=== PATIENT | female | born 1970 | race Asian ===

== ENCOUNTER → 2018-06-02 12:51 | Outpatient (CLI) | payer OTHER, SELFPAY ==
--- NOTE | 2018-06-02 12:58 | DI.RAD.S_ITS ---
PROCEDURE: XR ANKLE LT MIN 3V INDICATIONS: Ankle pain and swelling TECHNIQUE: 4 views of the ankle were acquired. COMPARISON: None. FINDINGS: Bones: No fractures or dislocations. Ankle mortise is normally aligned. No suspicious bony lesions. Soft tissues: No tibiotalar joint effusion. Achilles tendon appears normal. IMPRESSION: No fracture. Dictated by: Jese Strickland M.D. on 06/02/2018 at 13:23 Approved by: Jese Strickland M.D. on 06/02/2018 at 13:25
== END ==
PROVIDERS: Family Provider Family Medicine; PCP Family Medicine; Visit Provider Physician Assistant
DX: M25.572 Pain in left ankle and joints of left foot (principal); M25.472 Effusion, left ankle
CPT/HCPCS: 73610

== ENCOUNTER → 2018-08-17 08:45 | Outpatient (CLI) | payer OTHER, SELFPAY ==
[2018-08-17 09:09] LABS: Hemoglobin 14.6 g/dL (12.0-16.0); Mean Corpuscular HGB Conc 32.4 % (30-36); Mean Corpuscular Hemoglobin 27.3 PG (26-34); Mean Corpuscular Volume 84.1 fL (80-100); Platelet Count 283 X10^3/uL (150-400); Red Blood Cell Count 5.34 X10^6/uL (4.0-5.2); Red Cell Distribution Width 13.3 % (11.6-14.8); White Blood Cell Count 4.6 X10^3/uL (4.5-11.0)
[2018-08-17 09:36] LABS: Alanine Aminotransferase 30 IU/L (9-52); Albumin 4.5 g/dL (3.5-5.0); Albumin Globulin Ratio 1.6 (1.0-2.8); Alkaline Phosphatase 56 U/L (38-126); Aspartate Aminotransferase 26 IU/L (14-36); BUN Creatinine Ratio 26.7 (6-22); Bilirubin Total 0.3 mg/dL (0.2-1.3); Blood Urea Nitrogen 16 mg/dL (7-17); Calcium 9.2 mg/dL (8.4-10.2); Carbon Dioxide 27 mmol/L (22-32); Chloride 103 mmol/L (98-107); Cholesterol 210 mg/dL (140-199); Estimated Glomerular Filt Rate > 60.0 mL/min (>60); Globulin 2.9 g/dL (1.7-4.1); Glucose 97 mg/dL (70-100); HDL Cholesterol 39 mg/dL (40-60); HEMOLYSIS < 15 (0-50); LDL Cholesterol Calculated 138 mg/dL (<100); Potassium 4.5 mmol/L (3.4-5.1); Sodium 139 mmol/L (137-145); Total Protein 7.4 g/dL (6.3-8.2); Triglycerides 164 mg/dL (35-150)
[2018-08-17 10:31] LABS: Appearance Urine UA CLEAR; Bilirubin Urine UA NEGATIVE (NEGATIVE); Color Urine UA YELLOW; Glucose Urine UA NEGATIVE (Negative); Ketones Urine UA NEGATIVE (NEGATIVE); Leukocyte Esterase Urine UA TRACE (NEGATIVE); Nitrite Urine UA NEGATIVE (Negative); Occult Blood Urine UA TRACE-INTACT (Negative); Protein Urine UA NEGATIVE (Negative); Urobilinogen Urine UA 0.2 E.U./dL (0.2); pH Urine UA 6.5 (4.5-8.0)
[2018-08-17 10:47] LABS: Thyroid Stimulating Hormone 1.52 uIU/mL (0.47-4.68)
[2018-08-17 11:00] LABS: Bacteria Urine Few (2-10); RBC Urine 1-5/HPF (0-5/HPF); Squamous Epithelial Cell Urine 1-5 /HPF; WBC Urine 0-1/HPF (0-5/HPF)
[2018-08-17 11:01] LABS: Culture Indicated Urine Specimen Cultured
== END ==
PROVIDERS: Family Provider Family Medicine; PCP Family Medicine; Visit Provider Family Medicine
DX: Z00.00 Encounter for general adult medical examination without abnormal findings (principal); Z51.81 Encounter for therapeutic drug level monitoring; E78.5 Hyperlipidemia, unspecified
CPT/HCPCS: 36415; 80053; 80061; 81001; 84443; 85027; 87077; 87086; 87186

== ENCOUNTER → 2018-09-21 13:23 | Outpatient (CLI) | payer OTHER, SELFPAY ==
--- NOTE | 2018-09-21 | DI.MG.S_ITS ---
BILATERAL DIGITAL SCREENING MAMMOGRAM 3D/2D WITH CAD: 09/21/2018 CLINICAL: Routine screening. Comparison is made to exams dated: 08/07/2015 mammogram - [facility], 03/15/2014 mammogram, and 09/01/2010 mammogram - [facility]. The tissue of both breasts is extremely dense, which lowers the sensitivity of mammography. Current study was also evaluated with a Computer Aided Detection (CAD) system. No significant masses, calcifications, or other findings are seen in either breast. There has been no significant interval change. IMPRESSION: NEGATIVE There is no mammographic evidence of malignancy. A 1 year screening mammogram is recommended. This exam was interpreted at Station ID: [id number]. NOTE: For mammograms, a report in lay terms will be sent to the patient. Approximately 15% of breast malignancies will not be visualized mammographically. In the management of a palpable breast mass, a negative mammogram must not discourage biopsy of a clinically suspicious lesion. Electronically Signed By: Gabby field/briana:09/21/2018 14:32:49 letter sent: Normal Exam ACR BI-RADS Category 1: Negative 3341F
== END ==
PROVIDERS: PCP Family Medicine; Visit Provider Family Medicine
DX: Z12.31 Encounter for screening mammogram for malignant neoplasm of breast (principal)
CPT/HCPCS: 77063; 77067

== ENCOUNTER → 2019-03-27 09:14 | Outpatient (CLI) | payer OTHER, SELFPAY ==
[2019-03-27 10:22] LABS: Alanine Aminotransferase 16 IU/L (9-52); Albumin 4.3 g/dL (3.5-5.0); Albumin Globulin Ratio 1.5 (1.0-2.8); Alkaline Phosphatase 52 U/L (38-126); Aspartate Aminotransferase 26 IU/L (14-36); Bilirubin Total 0.5 mg/dL (0.2-1.3); Blood Urea Nitrogen 15 mg/dL (7-17); Calcium 9.4 mg/dL (8.4-10.2); Carbon Dioxide 28 mmol/L (22-32); Chloride 102 mmol/L (98-107); Cholesterol 222 mg/dL (140-199); Estimated Glomerular Filt Rate > 60.0 mL/min (>60); Globulin 2.9 g/dL (1.7-4.1); Glucose 92 mg/dL (70-100); HDL Cholesterol 39 mg/dL (40-60); HEMOLYSIS < 15 (0-50); LDL Cholesterol Calculated 154 mg/dL (<100); Potassium 3.9 mmol/L (3.4-5.1); Sodium 138 mmol/L (137-145); Total Protein 7.2 g/dL (6.3-8.2); Triglycerides 143 mg/dL (35-150)
[2019-03-27 10:41] LABS: Appearance Urine UA CLEAR; Bilirubin Urine UA NEGATIVE (NEGATIVE); Color Urine UA YELLOW; Glucose Urine UA NEGATIVE (Negative); Ketones Urine UA NEGATIVE (NEGATIVE); Leukocyte Esterase Urine UA NEGATIVE (NEGATIVE); Nitrite Urine UA NEGATIVE (Negative); Occult Blood Urine UA NEGATIVE (Negative); Protein Urine UA NEGATIVE (Negative); Specific Gravity Urine UA <=1.005 (1.000-1.035); Urobilinogen Urine UA 0.2 E.U./dL (0.2)
== END ==
PROVIDERS: PCP Family Medicine; Visit Provider Family Medicine
DX: E78.5 Hyperlipidemia, unspecified (principal); M17.10 Unilateral primary osteoarthritis, unspecified knee; M19.90 Unspecified osteoarthritis, unspecified site; R30.0 Dysuria; R35.0 Frequency of micturition
CPT/HCPCS: 36415; 80053; 80061; 81003

== ENCOUNTER → 2019-08-08 09:48 | Outpatient (CLI) | payer OTHER, SELFPAY ==
[2019-08-08 11:26] LABS: Alanine Aminotransferase 15 IU/L (<35); Albumin 4.4 g/dL (3.5-5.0); Albumin Globulin Ratio 1.7 (1.0-2.8); Alkaline Phosphatase 55 U/L (38-126); Aspartate Aminotransferase 23 IU/L (14-36); BUN Creatinine Ratio 25.7 (6-22); Bilirubin Total 0.4 mg/dL (0.2-1.3); Blood Urea Nitrogen 18 mg/dL (7-17); Calcium 9.6 mg/dL (8.4-10.2); Carbon Dioxide 26 mmol/L (22-32); Chloride 104 mmol/L (98-107); Cholesterol 173 mg/dL (140-199); Estimated Glomerular Filt Rate > 60.0 mL/min (>60); Globulin 2.6 g/dL (1.7-4.1); Glucose 95 mg/dL (70-100); HDL Cholesterol 44 mg/dL (40-60); HEMOLYSIS < 15 (0-50); LDL Cholesterol Calculated 114 mg/dL (<100); Potassium 4.3 mmol/L (3.4-5.1); Sodium 139 mmol/L (137-145); Triglycerides 73 mg/dL (35-150)
== END ==
PROVIDERS: PCP Student in an Organized Health Care Education/Training Program; Referring Provider Family Medicine; Visit Provider Family Medicine
DX: E78.5 Hyperlipidemia, unspecified (principal)
CPT/HCPCS: 36415; 80053; 80061

== ENCOUNTER → 2020-03-25 08:32 | Outpatient (CLI) | payer OTHER, SELFPAY ==
--- NOTE | 2020-03-25 08:36 | DI.US.S_ITS ---
LIMITED ULTRASOUND OF RIGHT BREAST: 03/25/2020 CLINICAL: Focal right breast pain. Comparison is made to exams dated: 03/25/2020 mammogram, 09/21/2018 mammogram, and 08/07/2015 mammogram - [facility]. Ultrasound of the right breast 9-10 o'clock region was performed on the area of interest. IMPRESSION: NEGATIVE There is no sonographic evidence of malignancy. There are no mammographic or sonographic abnormalities seen in the right breast to correspond with the pain at 9 and 10 o'clock, however, clinical followup is recommended. A 1 year screening mammogram is recommended. This exam was interpreted at Station ID: [id number]. Electronically Signed By: Gabby Gonzales M.D. lk/:03/25/2020 10:11:03 letter sent: Clinical Evaluation Ultrasound BI-RADS: 1 Negative
--- NOTE | 2020-03-25 08:36 | DI.MG.S_ITS ---
BILATERAL DIGITAL DIAGNOSTIC MAMMOGRAM 3D/2D: 03/25/2020 CLINICAL: Right breast pain. Comparison is made to exams dated: 09/21/2018 mammogram, 08/07/2015 mammogram - [facility], and 03/15/2014 mammogram - [facility]. The tissue of both breasts is heterogeneously dense. This may lower the sensitivity of mammography. No significant masses, calcifications, or other findings are seen in either breast. IMPRESSION: INCOMPLETE: NEEDS ADDITIONAL IMAGING EVALUATION There are no mammographic abnormalities seen in the right breast to correspond with the pain at 9 and 10 o'clock, however, targeted ultrasound of the right breast is recommended and will be performed immediately following this exam. This exam was interpreted at Station ID: [id number]. NOTE: For mammograms, a report in lay terms will be sent to the patient. Approximately 15% of breast malignancies will not be visualized mammographically. In the management of a palpable breast mass, a negative mammogram must not discourage biopsy of a clinically suspicious lesion. Electronically Signed By: Gabby Gonzales M.D. lk/:03/25/2020 09:19:27 ACR BI-RADS Category 0: Incomplete 3340F
== END ==
PROVIDERS: PCP Student in an Organized Health Care Education/Training Program; Referring Provider Registered Nurse Diabetes Educator; Visit Provider Registered Nurse Diabetes Educator
DX: R92.8 Other abnormal and inconclusive findings on diagnostic imaging of breast (principal); N64.4 Mastodynia
CPT/HCPCS: 76642; 77066; G0279

== ENCOUNTER → 2020-04-23 10:27 | Outpatient (CLI) | payer OTHER, SELFPAY ==
--- NOTE | 2020-04-23 10:28 | DI.RAD.S_ITS ---
PROCEDURE: XR PELVIS 1-2V INDICATIONS: pubic bone pain x 6 days since mountain climbing TECHNIQUE: Single frontal view(s) of the pelvis acquired. COMPARISON: None. FINDINGS: Bones: No fractures or dislocations. No suspicious bony lesions. Soft tissues: Visualized bowel gas pattern is normal. No suspicious soft tissue calcifications. IMPRESSION: Normal for age, source of current pain symptoms is not seen. Dictated by: Suleiman Voss M.D. on 04/23/2020 at 11:22 Approved by: Suleiman Voss M.D. on 04/23/2020 at 11:22
== END ==
PROVIDERS: PCP Student in an Organized Health Care Education/Training Program; Referring Provider Registered Nurse Diabetes Educator; Visit Provider Registered Nurse Diabetes Educator
DX: M89.8X8 Other specified disorders of bone, other site (principal)
CPT/HCPCS: 72170

== ENCOUNTER 2021-04-08 10:37 | Emergency (ER) | payer OTHER, SELFPAY ==
[2021-04-08 11:08] VITALS: BP 126/71; PULSE 63; RESP 20; TEMP 36.6; O2SAT 98; BMI 23.8
--- NOTE | 2021-04-08 11:13 | DI.RAD.S_ITS ---
PROCEDURE: XR ANKLE RT MIN 3V INDICATIONS: injured yesterday swollen/bruised TECHNIQUE: 3 views of the ankle were acquired. COMPARISON: [facility], CR, XR ANKLE LT MIN 3V, 06/02/2018, 13:04. FINDINGS: Bones: Nondisplaced fracture of tip of the lateral malleolus. No other fractures or dislocations. Ankle mortise is normally aligned. No suspicious bony lesions. Soft tissues: No tibiotalar joint effusion. Achilles tendon appears normal. IMPRESSION: Nondisplaced fracture of the tip the lateral malleolus. Dictated by: Cristofer Villanueva M.D. on 04/08/2021 at 13:25 Approved by: Cristofer Villanueva M.D. on 04/08/2021 at 13:26
--- NOTE | 2021-04-08 12:17 | ED_ITS ---
HPI - Extremity Injury (Lower) <Cornelio Freeman PA-C - Last Filed: 04/08/21 13:54> General Chief Complaint: Extremity Injury, Lower Stated Complaint: Rt ankle injury Time Seen by Provider: 04/08/21 12:04 Source: patient Mode of arrival: Wheelchair Limitations: no limitations History of Present Illness HPI Narrative: 51-year-old female with past medical history hyperlipidemia, osteoarthritis presents to the ED with 2 days of right ankle pain. Patient reports a mechanical fall yesterday evening while walking her dog, when she twisted her right ankle. Patient was unable to bear weight on the right foot right after the injury. Patient reports some numbness to the dorsal aspect of the right foot. Denies weakness, tingling. Denies any other injuries. Denies head strike. Denies loss of consciousness. Not on blood thinners. Related Data Home Medications Medication Instructions Recorded Confirmed No Known Home Medications 03/07/20 04/22/20 Allergies Allergy/AdvReac Type Severity Reaction Status Date / Time tetracycline [TETRACYCLINE] Allergy Unknown Verified 04/22/20 11:43 Review of Systems <Cornelio Freeman PA-C - Last Filed: 04/08/21 13:54> Constitutional Constitutional: Denies chills, Denies fatigue, Denies fever(s), Denies frequent falls, Denies lethargy and Denies weakness Eyes Eyes: Denies change in vision, Denies eye discharge, Denies irritation and Denies loss of vision ENT Ears, Nose, Mouth, and Throat: Denies change in voice, Denies dizziness, Denies neck pain, Denies sore throat and Denies throat swelling Cardiovascular Cardiovascular: Denies chest pain, Denies irregular heart rhythm, Denies lightheadedness, Denies palpitations, Denies dyspnea, Denies dyspnea on exertion and Denies orthopnea Respiratory Respiratory: Denies cough, Denies dyspnea, Denies dyspnea on exertion and Denies wheezing Gastrointestinal Gastrointestinal: Denies abdominal pain, Denies change in bowel habits, Denies diarrhea, Denies nausea and Denies vomiting Musculoskeletal Musculoskeletal: Denies neck pain and Reports numbness Comments: Right ankle swelling, pain, numbness Integumentary/Breasts Skin/Breast: Denies pruritus, Denies erythema, Denies rash and Denies wounds Neurologic Neurologic: Denies behavioral changes, Denies confusion, Denies dizziness, Denies frequent falls, Denies loss of vision, Reports numbness and Denies weakness Psychiatric Psychiatric: Denies anxiety, Denies behavioral changes, Denies confusion, Denies depression, Denies homicidal ideation and Denies suicidal ideation Endocrine Endocrine: Denies fatigue, Denies flushing and Denies palpitations Hematologic/Lymphatic Hematologic/Lymphatic: Denies easy bruising Allergic/Immunologic Allergic/Immunologic: Denies urticaria, Denies throat swelling and Denies wheezing Patient History <Cornelio Freeman PA-C - Last Filed: 04/08/21 13:54> Medical History (Updated 04/08/21 @ 13:52 by Cornelio Freeman PA-C) Osteitis pubis Family History Mother Age: 76 Hypertension Hyperlipidemia Social History Smoking Status: Never smoker Smoking Status: Never smoker alcohol intake frequency: other Substance Use Type: does not use Exam <Cornelio Freeman PA-C - Last Filed: 04/08/21 13:54> Initial Vital Signs Initial Vital Signs: Vital Signs Temperature 98 F 04/08/21 11:08 Pulse Rate 63 04/08/21 11:08 Respiratory Rate 20 04/08/21 11:08 Blood Pressure 126/71 04/08/21 11:08 Pulse Oximetry 98 04/08/21 11:08 Const General: cooperative HENOK Head: normocephalic and atraumatic Ears: external ears normal and TM's normal bilaterally Nose: external nose normal and No nasal discharge Face and sinus: sinuses nontender, face symmetric, no sinus tenderness and No dry mucous membranes Mouth: oral mucosae normal and moist mucous membranes Teeth and gingiva: dentition normal Throat: tonsils normal and uvula midline Eyes General: appearance normal, both eyes and all related structures Eyelids: eyelids normal Conjunctivae: conjunctivae normal Sclera: sclerae normal Pupils: PERRL EOM: EOM intact bilaterally Neck Neck: normal visual inspection, trachea midline, No lymphadenopathy, No midline deformity and No JVD Lymphatic: No lymphedema Chest Chest: normal inspection of the chest Resp Effort & Inspection: normal respiratory effort, able to speak in complete sentences, no respiratory distress and no use of accessory muscles Auscultation: clear to auscultation bilaterally, no rales, no rhonchi and no wheezes Cardio Rate: regular rate Rhythm: regular rhythm Heart Sounds: no click, no gallops, no murmurs and no rubs Pulses: normal peripheral pulses GI Inspection: non-distended Palpation: soft, no hepatosplenomegaly, No guarding, No pulsatile mass and No tender Auscultation: normal bowel sounds Back/Spine/Pelvis Back: No CVA tenderness Cervical Spine: cervical ROM normal and No pain with cervical ROM Thoracic/Lumbar Spine: thoracic and lumbar spine normal to inspection Skin General: no rashes or lesions noted, No jaundice and No petechiae Neuro General: patient alert, patient oriented x3, gait normal and no focal motor deficits Speech: speech normal Extrem General: full ROM, no clubbing, cyanosis or edema, no pedal edema and no calf tenderness Other: Right ankle appear swollen, particularly in the region of the lateral malleolus. No bruising noted. Strength intact. Range of motion limited by pain. Patient reports diminished sensation on the right foot compared to the left. Neurovascularly intact. Psych Appearance: well kempt Mental Status: mental status grossly normal Attitude: cooperative Thought Content: normal and suicidality Judgment: judgment good <Garo Mclean DO - Last Filed: 04/08/21 14:18> Initial Vital Signs Initial Vital Signs: Vital Signs Temperature 98 F 04/08/21 11:08 Pulse Rate 63 04/08/21 11:08 Respiratory Rate 20 04/08/21 11:08 Blood Pressure 126/71 04/08/21 11:08 Pulse Oximetry 98 04/08/21 11:08 Course <Cornelio Freeman PA-C - Last Filed: 04/08/21 13:54> Course Course Narrative: X-ray shows nondisplaced lateral malleolar fracture of the right ankle. Will fit the patient in an ankle boot, provided crutches for nonweightbearing. Follow up with [facility] in 5 days. Discharge home with ED return precautions Orders Ordered: ED Orders 04/08/21 11:13 XR ankle RT min 3V Stat 04/08/21 12:18 XR foot RT min 3V Stat XR tibia fibula RT 2V Stat Discontinued Medications Ibuprofen (Ibuprofen 400 Mg Tablet) 600 mg PO NOW ONE Stop: 04/08/21 12:20 Last Admin: 04/08/21 12:25 Dose: 600 mg Documented by: TATO Vital Signs Vital signs: Vital Signs - 8 hr 04/08/21 11:08 04/08/21 14:08 Temperature 98 F Pulse Rate 63 68 Respiratory Rate 20 18 Blood Pressure 126/71 125/70 Pulse Oximetry 98 99 <Garo Mclean DO - Last Filed: 04/08/21 14:18> Orders Ordered: ED Orders 04/08/21 11:13 XR ankle RT min 3V Stat 04/08/21 12:18 XR foot RT min 3V Stat XR tibia fibula RT 2V Stat Discontinued Medications Ibuprofen (Ibuprofen 400 Mg Tablet) 600 mg PO NOW ONE Stop: 04/08/21 12:20 Last Admin: 04/08/21 12:25 Dose: 600 mg Documented by: TATO Vital Signs Vital signs: Vital Signs - 8 hr 04/08/21 11:08 04/08/21 14:08 Temperature 98 F Pulse Rate 63 68 Respiratory Rate 20 18 Blood Pressure 126/71 125/70 Pulse Oximetry 98 99 MDM - Extremity Injury (Lower) <Cornelio Freeman PA-C - Last Filed: 04/08/21 13:54> Medical Records Attestation: I reviewed the patient's medical records. Imaging Data Extremity x-ray #1: Radiologist's Impression: PROCEDURE:? XR ANKLE RT MIN 3V ? INDICATIONS:? injured yesterday swollen/bruised ? TECHNIQUE:? 3 views of the ankle were acquired.? ? COMPARISON:? [facility], , XR ANKLE LT MIN 3V, 06/02/2018, 13:04. ? FINDINGS:? ? Bones:? Nondisplaced fracture of tip of the lateral malleolus.? No other fractures or dislocations.? Ankle mortise is normally aligned.? No suspicious bony lesions.? ? Soft tissues:? No tibiotalar joint effusion.? Achilles tendon appears normal.? ? ? IMPRESSION:? Nondisplaced fracture of the tip the lateral malleolus. ? Dictated by: Cristofer Villanueva M.D. on 04/08/2021 at 13:25 ? ? Approved by: Cristofer Villanueva M.D. on 04/08/2021 at 13:26 ? Extremity x-ray #2: Radiologist's Impression: PROCEDURE:? XR TIBIA FUBULA RT 2V ? INDICATIONS:? Fall ? TECHNIQUE:? 2 views of the upper tibia and fibula were acquired.? ? COMPARISON:? [facility], , XR ANKLE RT MIN 3V, 04/08/2021, 11:17. ? FINDINGS:? ? Bones:? No fractures or dislocations.? No suspicious bony lesions.? Nondisplaced distal fibular fracture noted.? No additional fracture in the upper tibia and fibula ? Soft tissues:? No suspicious soft tissue calcifications or masses.? ? IMPRESSION:? Nondisplaced distal fibular fracture with associated soft tissue swelling. ? ? ? Approved by: Jim Jack M.D. on 04/08/2021 at 12:39? Extremity x-ray #3: Radiologist's Impression: PROCEDURE:? XR FOOT RT MIN 3V ? INDICATIONS:? fall ? TECHNIQUE:? 3 views of the foot were acquired.? ? COMPARISON:? [facility], , FOOT 3V RIGHT, 03/02/2013, 10:26. ? FINDINGS:? ? Bones:? No fractures or dislocations.? No suspicious bony lesions.? ? Soft tissues:? No tibiotalar joint effusion.? Achilles tendon appears normal.? ? ? IMPRESSION:? No evidence of fracture or foreign body in the foot ? ? ? Approved by: Jim Jack M.D. on 04/08/2021 at 12:40? MDM Narrative Medical decision making narrative: 51-year-old female with past medical history hyperlipidemia, osteoarthritis presents to the ED with 2 days of right ankle pain. Concern for fracture/dislocation versus ankle sprain. For physical exam, patient is neurovascularly intact. Will order x-rays of the ankle, foot, tib- fib. Will give ibuprofen for pain. Will re-evaluate. Discharge Plan Departure Patient Disposition: Home Clinical Impression: Ankle fracture Qualifiers: Encounter type: initial encounter Fracture type: closed Laterality: right Qualified Code(s): S82.891A - Other fracture of right lower leg, initial encounter for closed fracture Instructions: DI for Ankle Fracture Activity Restrictions/Additional Instructions: You were evaluated in the ED today for a right ankle injury. Your x-ray shows a nondisplaced lateral malleolar fracture. You have been fitted with an ankle boot. Please avoid weight-bearing on the injured foot. You can use crutches for ambulation. Please follow-up with [facility] at [phone] within 5 days. Return to the ED if your symptoms worsen, you experience increased numbness tingling, weakness. Prescriptions: No Action No Known Home Medications RF: 0 Referrals: Abundio Harris MD [Primary Care Provider] - <Garo Mclean DO - Last Filed: 04/08/21 14:18> Cosign ED Attending Cosignature Attestation: Dr Mclean Co-Sign Statement: I was available for consultation during this patient's emergency department visit. This chart is signed by myself for administrative purposes only. I did not have direct contact with this patient during this visit. They were seen independently by the APC.
--- NOTE | 2021-04-08 12:18 | DI.RAD.S_ITS ---
PROCEDURE: XR TIBIA FUBULA RT 2V INDICATIONS: Fall TECHNIQUE: 2 views of the upper tibia and fibula were acquired. COMPARISON: [facility], CR, XR ANKLE RT MIN 3V, 04/08/2021, 11:17. FINDINGS: Bones: No fractures or dislocations. No suspicious bony lesions. Nondisplaced distal fibular fracture noted. No additional fracture in the upper tibia and fibula Soft tissues: No suspicious soft tissue calcifications or masses. IMPRESSION: Nondisplaced distal fibular fracture with associated soft tissue swelling. Approved by: Jim Jack M.D. on 04/08/2021 at 12:39
--- NOTE | 2021-04-08 12:18 | DI.RAD.S_ITS ---
PROCEDURE: XR FOOT RT MIN 3V INDICATIONS: fall TECHNIQUE: 3 views of the foot were acquired. COMPARISON: [facility], , FOOT 3V RIGHT, 03/02/2013, 10:26. FINDINGS: Bones: No fractures or dislocations. No suspicious bony lesions. Soft tissues: No tibiotalar joint effusion. Achilles tendon appears normal. IMPRESSION: No evidence of fracture or foreign body in the foot Approved by: Jim Jack M.D. on 04/08/2021 at 12:40
[2021-04-08] MEDS: IBUPROFEN 400 MG TABLET 600 MG PO (12:25)
[2021-04-08 14:08] VITALS: BP 125/70; PULSE 68; RESP 18; O2SAT 99
== END 2021-04-08 14:10 | disposition home or self-care (01) ==
PROVIDERS: Emergency Provider Student in an Organized Health Care Education/Training Program; PCP Student in an Organized Health Care Education/Training Program
DX: S82.64XA Nondisplaced fracture of lateral malleolus of right fibula, initial encounter for closed fracture (principal); W18.30XA Fall on same level, unspecified, initial encounter
CPT/HCPCS: 29580; 73590; 73610; 73630; 99283; 99284

== ENCOUNTER → 2021-10-03 15:45 | Outpatient (CLI) | payer OTHER, SELFPAY ==
--- NOTE | 2021-10-03 15:46 | DI.MG.S_ITS ---
BILATERAL DIGITAL SCREENING MAMMOGRAM 3D/2D WITH CAD: 10/03/2021 CLINICAL: Routine screening. Comparison is made to exams dated: 03/25/2020 ultrasound, 03/25/2020 mammogram, 09/21/2018 mammogram, and 08/07/2015 mammogram - [facility]. The tissue of both breasts is heterogeneously dense. This may lower the sensitivity of mammography. Current study was also evaluated with a Computer Aided Detection (CAD) system. No significant masses, calcifications, or other findings are seen in either breast. There has been no significant interval change. IMPRESSION: NEGATIVE There is no mammographic evidence of malignancy. A 1 year screening mammogram is recommended. This exam was interpreted at Station ID: [id number]. NOTE: For mammograms, a report in lay terms will be sent to the patient. Approximately 15% of breast malignancies will not be visualized mammographically. In the management of a palpable breast mass, a negative mammogram must not discourage biopsy of a clinically suspicious lesion. Electronically Signed By: Mahesh Krishnan acr/briana:10/03/2021 16:03:45 letter sent: Normal Exam ACR BI-RADS Category 1: Negative 3341F
== END ==
PROVIDERS: PCP Student in an Organized Health Care Education/Training Program; Referring Provider Student in an Organized Health Care Education/Training Program; Visit Provider Student in an Organized Health Care Education/Training Program
DX: Z12.31 Encounter for screening mammogram for malignant neoplasm of breast (principal)
CPT/HCPCS: 77063; 77067

== ENCOUNTER → 2022-01-09 12:47 | Outpatient (CLI) | payer OTHER, SELFPAY | PROVIDERS: PCP Internal Medicine; Referring Provider Internal Medicine; Visit Provider Internal Medicine | DX: Z78.0 Asymptomatic menopausal state (principal); Z13.820 Encounter for screening for osteoporosis; M85.851 Other specified disorders of bone density and structure, right thigh | CPT/HCPCS: 77080 ==

== ENCOUNTER → 2022-01-20 09:10 | Outpatient (CLI) | payer OTHER, SELFPAY ==
[2022-01-20 10:01] LABS: Hematocrit 43.1 % (36-46); Hemoglobin 14.1 g/dL (12.0-16.0); Mean Corpuscular HGB Conc 32.6 % (30-36); Mean Corpuscular Hemoglobin 26.6 PG (26-34); Mean Corpuscular Volume 81.5 fL (80-100); Platelet Count 264 X10^3/uL (150-400); Red Blood Cell Count 5.29 X10^6/uL (4.0-5.2); Red Cell Distribution Width 13.8 % (11.6-14.8); White Blood Cell Count 4.7 X10^3/uL (4.5-11.0)
[2022-01-20 12:07] LABS: Alanine Aminotransferase 15 IU/L (<35); Albumin 4.3 g/dL (3.5-5.0); Albumin Globulin Ratio 1.8 (1.0-2.8); Alkaline Phosphatase 54 U/L (38-126); Aspartate Aminotransferase 22 IU/L (14-36); Bilirubin Total 0.2 mg/dL (0.2-1.3); Blood Urea Nitrogen 11 mg/dL (7-17); Calcium 8.7 mg/dL (8.4-10.2); Carbon Dioxide 26 mmol/L (22-32); Chloride 105 mmol/L (98-107); Cholesterol 212 mg/dL (140-199); Estimated Glomerular Filt Rate > 60 mL/min (>60); Globulin 2.4 g/dL (1.7-4.1); Glucose 93 mg/dL (70-100); HDL Cholesterol 42 mg/dL (40-60); HEMOLYSIS < 15 (0-50); LDL Cholesterol Calculated 152 mg/dL (<100); Potassium 4.4 mmol/L (3.4-5.1); Sodium 138 mmol/L (137-145); Total Protein 6.7 g/dL (6.3-8.2); Triglycerides 88 mg/dL (35-150)
[2022-01-20 12:28] LABS: TSH w/ Reflex to FT4 1.82 uIU/mL (0.47-4.68)
[2022-02-05 17:19] LABS: Vitamin D 25 Hydroxy (D3) 100 ng/mL (30.0-100.0)
== END ==
PROVIDERS: PCP Internal Medicine; Referring Provider Internal Medicine; Visit Provider Internal Medicine
DX: E78.2 Mixed hyperlipidemia (principal); Z78.0 Asymptomatic menopausal state
CPT/HCPCS: 36415; 80053; 80061; 82306; 84443; 85027

== ENCOUNTER → 2022-12-09 13:19 | Outpatient (CLI) | payer OTHER, SELFPAY ==
--- NOTE | 2022-12-09 | DI.MG.S_ITS ---
BILATERAL DIGITAL SCREENING MAMMOGRAM 3D/2D WITH CAD: 12/09/2022 CLINICAL: Routine screening. Comparison is made to exams dated: 10/03/2021 mammogram, 03/25/2020 mammogram, 09/21/2018 mammogram, and 08/07/2015 mammogram - [facility]. Both breasts are heterogeneously dense, which may obscure small masses (category c / 51-75% glandular tissue). Current study was also evaluated with a Computer Aided Detection (CAD) system. No significant masses, calcifications, or other findings are seen in either breast. There has been no significant interval change. IMPRESSION: NEGATIVE There is no mammographic evidence of malignancy. A 1 year screening mammogram is recommended. Based on the Tyrer Cuzick model (a risk assessment model) the patient's lifetime risk is 15.7% and her 10 year risk is 4.4%. According to the ACR, ACS, and NCCN guidelines, an annual breast MRI exam along with mammogram is recommended if the patient's lifetime risk is 20% or greater. This exam was interpreted at Station ID: [id number]. NOTE: For mammograms, a report in lay terms will be sent to the patient. Approximately 15% of breast malignancies will not be visualized mammographically. In the management of a palpable breast mass, a negative mammogram must not discourage biopsy of a clinically suspicious lesion. Electronically Signed By: Rc scruggs/briana:12/09/2022 16:42:40 letter sent: Normal Exam ACR BI-RADS Category 1: Negative [id number]
== END ==
PROVIDERS: PCP Internal Medicine; Referring Provider Internal Medicine; Visit Provider Internal Medicine
DX: Z12.31 Encounter for screening mammogram for malignant neoplasm of breast (principal)
CPT/HCPCS: 77063; 77067

== ENCOUNTER → 2023-02-26 08:42 | Outpatient (CLI) | payer OTHER, SELFPAY ==
[2023-02-26 10:41] LABS: Cholesterol 221 mg/dL (140-199); Glucose 87 mg/dL (70-100); HDL Cholesterol 44 mg/dL (40-60); LDL Cholesterol Calculated 146 mg/dL (<100); Triglycerides 157 mg/dL (35-150)
== END ==
PROVIDERS: PCP Internal Medicine; Referring Provider Internal Medicine; Visit Provider Internal Medicine
DX: E78.2 Mixed hyperlipidemia (principal)
CPT/HCPCS: 36415; 80061; 82947

== ENCOUNTER → 2024-03-03 09:18 | Outpatient (CLI) | payer OTHER, SELFPAY ==
[2024-03-03 11:09] LABS: Triglycerides 70 mg/dL (35-150)
[2024-03-03 11:16] LABS: Cholesterol 274 mg/dL (140-199); Glucose 93 mg/dL (70-100); HDL Cholesterol 50 mg/dL (40-60); LDL Cholesterol Calculated 210 mg/dL (<100)
== END ==
LOC: LAB 09:19
PROVIDERS: PCP Internal Medicine; Referring Provider Internal Medicine; Visit Provider Internal Medicine
DX: E78.2 Mixed hyperlipidemia (principal)
CPT/HCPCS: 36415; 80061; 82947

== ENCOUNTER → 2025-03-09 09:04 | Outpatient (CLI) | payer OTHER, SELFPAY ==
[2025-03-09 10:13] LABS: Hemoglobin A1C% w Est Avg Glu 5.8 % (4.0-6.0)
[2025-03-09 10:14] LABS: Blood Urea Nitrogen 13 mg/dL (7-17); Calcium 9.4 mg/dL (8.4-10.2); Carbon Dioxide 26 mmol/L (22-32); Chloride 105 mmol/L (98-107); Cholesterol 287 mg/dL (140-199); Estimated Glomerular Filt Rate > 60 mL/min (>60); Glucose 98 mg/dL (70-99); HDL Cholesterol 59 mg/dL (40-60); HEMOLYSIS < 15 (0-50); Potassium 4.1 mmol/L (3.4-5.1); Sodium 138 mmol/L (137-145); Triglycerides 151 mg/dL (35-150)
== END ==
PROVIDERS: PCP Internal Medicine; Referring Provider Internal Medicine; Visit Provider Internal Medicine
DX: E78.2 Mixed hyperlipidemia (principal); R73.01 Impaired fasting glucose
CPT/HCPCS: 36415; 80048; 80061; 83036